=== PATIENT | male | born 1985 | race Caucasian/White ===

== ENCOUNTER 2017-08-20 08:38 | Emergency (ER) | payer OTHER ==
[~2017-08-20] VITALS: Ht 180.3 cm; Wt 70.3 kg
[~2017-08-20 08:38] MED LIST: CLEOCIN HCL150 MG PO; NORCO 5-325 TA1 EACH PO
[2017-08-20] MEDS ORDERED: CLEOCIN HCL150 MG PO (09:18)
[2017-08-20 09:58] VITALS: BP 107/70
== END 2017-08-20 09:59 | disposition home or self-care (01) ==
LOC: ER 08:38
DX: L03.221 Cellulitis of neck (principal); F17.210 Nicotine dependence, cigarettes, uncomplicated; Z88.0 Allergy status to penicillin